=== PATIENT | male | born 1970 | race Caucasian/White ===

== ENCOUNTER 2023-11-04 09:18 | Day surgery (SDC) | payer OTHER ==
[~2023-11-04] VITALS: Ht 165.1 cm; Wt 98.4 kg
[2023-11-04] MEDS ORDERED: LIDOCAINE 2% 100 MG/5 ML UJET TP ONE (10:29)
[2023-11-04] MEDS ORDERED: fentaNYL citrate 0.05 MG/ML VIAL ONE (10:29)
[2023-11-04] MEDS ORDERED: KETOROLAC 30 MG/ML VIAL ONE (10:50)
[2023-11-04] MEDS ORDERED: KETOROLAC 30 MG/ML VIAL IVP ONE (13:20)
== END 2023-11-04 11:45 | disposition home or self-care (01) ==
LOC: MDS 09:18 → MMU 09:19 → MDS 11:45
PROVIDERS: ATTEND Internal Medicine Gastroenterology
DX: Z12.11 Encounter for screening for malignant neoplasm of colon (principal); I10 Essential (primary) hypertension; E11.9 Type 2 diabetes mellitus without complications; E78.00 Pure hypercholesterolemia, unspecified; Z89.422 Acquired absence of other left toe(s); Z79.82 Long term (current) use of aspirin; Z79.84 Long term (current) use of oral hypoglycemic drugs; Z79.899 Other long term (current) drug therapy
CPT/HCPCS: 45378; J1885; J3010